=== PATIENT | female | born 1935 | race Hispanic/Latino ===

== ENCOUNTER 2017-12-08 12:21 | Inpatient (IN) | payer MEDICARE ==
--- NOTE | 2017-12-08 12:50 | ED PDOC ---
Arrival/HPI - General Chief Complaint: Dizziness/Lightheaded - History of Present Illness Narrative History of Present Illness (Text): 12/08/17 12:47 Pt is an 82 yo F with PMH of HTN presents to ED due to dizziness for the past couple of days. Pt states that everytime she looks down or bends over her heart starts to race and she gets dizzy. Pt also states that she will occasionally get dizziness while walking around or when standing to quickly. Pt states that her symptoms worsened over the last day and her BP was elevated, so she came to ED to be evaluated. Pt also complains of non-productive cough. Pt denied CP, palpitations, SOB, n/v/d, abdominal pain, fever, chills, STOVALL or dysuria. Pt denied any prior cardiac history. PMD: Jol[place] Past Medical History - Reproductive Menopause: Yes - Cardiac Hx Pacemaker: No - Neurological Hx Paralysis: No - Hematological/Oncological Hx Blood Transfusions: No Hx Blood Transfusion Reaction: No - Musculoskeletal/Rheumatological Hx Arthritis: Yes (hands) - Gastrointestinal Hx Diverticulitis: Yes - Psychiatric Hx Depression: No Hx Emotional Abuse: No Hx Physical Abuse: No Hx Substance Use: No - Surgical History Hx Orthopedic Surgery: Yes Other/Comment: Lt ankle - Anesthesia Hx Anesthesia Reactions: Yes ("TAKES LONGER TO WAKE UP". DR LEWIS MADE AWARE) Hx Malignant Hyperthermia: No - Suicidal Assessment Feels Threatened In Home Enviroment: No Family/Social History Family/Social History: No Known Family HX Smoking Status: Never Smoked Hx Alcohol Use: No Hx Substance Use: No Hx Substance Use Treatment: No Allergies/Home Meds Allergies/Adverse Reactions: Allergies No Known Allergies Allergy (Verified 12/13/12 11:37) Home Medications: Home Meds Medication Instructions Recorded Confirmed Lisinopril 0 mg PO 12/27/12 12/27/12 Review of Systems - Review of Systems Constitutional: Normal Eyes: Normal ENT: Normal Respiratory: Cough (dry). absent: SOB Cardiovascular: Other (tachycardia). absent: Chest Pain, Palpitations, Orthopnea Gastrointestinal: Normal Genitourinary Female: Normal Musculoskeletal: Normal Skin: Normal Neurological: Normal Endocrine: Normal Hemo/Lymphatic: Normal Psychiatric: Normal Physical Exam Vital Signs Temp Pulse Resp BP Pulse Ox 12/08/17 12:31 98.3 F 64 19 172/78 H 95 Temperature: Afebrile Blood Pressure: Normal Pulse: Regular Respiratory Rate: Normal Appearance: Positive for: Well-Appearing Pain Distress: None Mental Status: Positive for: Alert and Oriented X 3 - Systems Exam Head: Present: Atraumatic, Normocephalic Pupils: Present: PERRL Extroacular Muscles: Present: EOMI Conjunctiva: Present: Normal Ears: Present: Normal Mouth: Present: Dry Pharnyx: Present: Normal Respiratory/Chest: Present: Clear to Auscultation. No: Accessory Muscle Use, Wheezes, Rales, Rhonchi Cardiovascular: Present: Murmurs (systolic, greatest at right sternal border), Normal S1, S2, Irregular Rhythm Abdomen: No: Tenderness, Distention, Peritoneal Signs, Rebound, Guarding Upper Extremity: Present: Normal Inspection Lower Extremity: Present: Normal Inspection Neurological: Present: GCS=15 Skin: Present: Warm, Dry, Normal Color Psychiatric: Present: Alert, Oriented x 3, Anxious Medical Decision Making ED Course and Treatment: 12/08/17 13:13 Assessment: Pt is an 82 yo F with PMH of HTN presents to ED due to dizziness. Plan: - CBC - CMP - Mg - Coags - Cardiac enzymes - EKG - CXR - Urinalysis - TSH - Orthostatics - CT head 12/08/17 13:15 EKG showed atrial fibrillation with competing junctional pacemaker. Cardiac enzyme negative. 12/08/17 15:55 Chest X-ray showed no active pulmonary disease. CT head showed no acute intracranial abnormality. Mild chronic microangiopathic changes and mild age-related global parenchymal volume loss. Fluid level in the right maxillary sinus with aerosolized secretions may represent acute sinusitis in the appropriate clinical setting. 12/08/17 16:[address] Abel, he accepts patient under his service. Requests cardiology consult with Dr. Mccauley. - Lab Interpretations Lab Results: 12/08/17 13:00 12/08/17 13:00 Lab Results 12/08/17 13:00: TSH 3rd Generation 2.80 12/08/17 13:00: Sodium 142, Potassium 3.8, Chloride 106, Carbon Dioxide 25, Anion Gap 15, BUN 23 H, Creatinine 0.7, Est GFR ( Amer) > 60, Est GFR ( Non-Af Amer) > 60, Random Glucose 106, Calcium 9.8, Magnesium 2.1, Total Bilirubin 0.4, AST 25, ALT 28, Alkaline Phosphatase 78, Lactate Dehydrogenase 503, Total Creatine Kinase 55, Troponin I < 0.01, NT-Pro-B Natriuret Pep 550 H, Total Protein 7.4, Albumin 3.9, Globulin 3.6, Albumin/Globulin Ratio 1.1 12/08/17 13:00: PT 12.0, INR 1.04, APTT 32.8 12/08/17 13:00: WBC 6.5, RBC 3.87, Hgb 11.3 L, Hct 33.7 L, MCV 87.1, MCH 29.2, MCHC 33.5, RDW 14.3, Plt Count 257, MPV 8.6, Gran % 62.9, Lymph % (Auto) 28.8, [place] % (Auto) 6.0, Eos % (Auto) 1.7, Baso % (Auto) 0.6, Gran # 4.09, Lymph # ( Auto) 1.9, [place] # (Auto) 0.4, Eos # (Auto) 0.1, Baso # (Auto) 0.04 - RAD Interpretation Radiology Orders: 12/08/17 12:53 CHEST PORTABLE [RAD] Stat 12/08/17 12:59 HEAD W/O CONTRAST [CT] Stat - Medication Orders Current Medication Orders: Discontinued Medications Aspirin (Aspirin) 325 mg PO STAT STA Stop: 12/08/17 12:53 Last Admin: 12/08/17 13:19 Dose: 325 mg Disposition/Present on Arrival - Present on Arrival Any Indicators Present on Arrival: No History of DVT/PE: No History of Uncontrolled Diabetes: No Urinary Catheter: No History of Decub. Ulcer: No History Surgical Site Infection Following: None - Disposition Have Diagnosis and Disposition been Completed?: Yes Diagnosis: Atrial fibrillation Disposition: HOSPITALIZED Disposition Time: 16:55 Patient Plan: Admission Condition: STABLE
[2017-12-08 13:14] LABS: BASO # 0.04 K/mm3 (0.0-2.0); BASO % 0.6 % (0.0-3.0); EOS # 0.1 (0.0-0.7); EOS % 1.7 % (1.5-5.0); GRAN # 4.09 (1.4-6.5); GRAN % 62.9 % (50.0-68.0); HEMOGLOBIN 11.3 g/dL (12.0-16.0); LYMPH # 1.9 (1.2-3.4); LYMPH % 28.8 % (22.0-35.0); MEAN CELL VOLUME 87.1 fl (80.0-105.0); MEAN CORPUSCULAR HEMOGLOBIN 29.2 pg (25.0-35.0); MEAN CORPUSCULAR HGB CONC 33.5 g/dl (31.0-37.0); MEAN PLATELET VOLUME 8.6 fl (7.0-11.0); MONO # 0.4 (0.1-0.6); RBC 3.87 10^6/uL (3.5-6.1); RED CELL DISTRIBUTION WIDTH 14.3 % (11.5-14.5); WHITE BLOOD COUNT 6.5 10^3/ul (4.5-11.0)
[2017-12-08 13:27] LABS: INR 1.04 (0.93-1.08); PARTIAL THROMBOPLASTIN TIME 32.8 Seconds (25.1-36.5)
[2017-12-08 13:33] LABS: ALB/GLOB RATIO 1.1 (1.1-1.8); ALBUMIN 3.9 g/dL (3.0-4.8); ALT/SGPT 28 U/L (7-56); AST/SGOT 25 U/L (14-36); BLOOD UREA NITROGEN 23 mg/dL (7-21); CALCIUM 9.8 mg/dL (8.4-10.5); GFR AFRICAN-AMERICAN > 60; GFR NON-AFRICAN AMERICAN > 60; MAGNESIUM 2.1 mg/dL (1.7-2.2)
--- NOTE | 2017-12-08 13:43 | RAD ---
HISTORY: Cough COMPARISON: 12/27/2012 FINDINGS: LUNGS: The lungs are well inflated. There is mild pulmonary venous congestion. PLEURA: No significant pleural effusion identified, no pneumothorax apparent. CARDIOVASCULAR: The heart is normal in size. Atherosclerotic aortic arch calcifications are present. OSSEOUS STRUCTURES: No significant abnormalities. VISUALIZED UPPER ABDOMEN: Normal. OTHER FINDINGS: None. IMPRESSION: No active pulmonary disease.
[2017-12-08 13:47] LABS: B-TYPE NATRIURETIC PEPTIDE 550 pg/mL (0-450); TROPONIN I < 0.01 ng/mL
--- NOTE | 2017-12-08 14:30 | CT ---
PROCEDURE: CT HEAD WITHOUT CONTRAST. HISTORY: Dizziness COMPARISON: None available. TECHNIQUE: Axial computed tomography images were obtained through the head/brain without intravenous contrast. Radiation dose: Total exam DLP = 844.53 mGy-cm. This CT exam was performed using one or more of the following dose reduction techniques: Automated exposure control, adjustment of the mA and/or kV according to patient size, and/or use of iterative reconstruction technique. FINDINGS: HEMORRHAGE: No intracranial hemorrhage. BRAIN: There are mild chronic microangiopathic changes. There is no mass, mass effect or abnormal extra-axial fluid collection. VENTRICLES: There is mild age-related global parenchymal volume loss and proportionate enlargement of the ventricles and cortical sulci. CALVARIUM: The skull base and calvarium are normal. PARANASAL SINUSES: There is fluid and aerosolized secretions in the right maxillary. The remaining included paranasal sinuses are predominantly clear. MASTOID AIR CELLS: Predominantly clear. OTHER FINDINGS: None. IMPRESSION: No acute intracranial abnormality. Mild chronic microangiopathic changes and mild age-related global parenchymal volume loss. Fluid level in the right maxillary sinus with aerosolized secretions may represent acute sinusitis in the appropriate clinical setting.
[2017-12-08] MEDS: Enoxaparin 60 mg Syringe SC SCH ×2 (21:18→21:26)
[2017-12-08 23:57] VITALS: BMI 21.1
[2017-12-08] MEDS ORDERED: Pneumococcal 23-Valent Vaccine IM ONE (23:57)
[2017-12-08] MEDS ORDERED: Influenza Vaccine 60 mcg/0.5 mL SYR (4YR UP) IM ONE (23:57)
[2017-12-09 05:32] VITALS: RESP 18; O2SAT 94
[2017-12-09 07:57] LABS: URINE BILIRUBIN NEGATIVE (NEGATIVE); URINE BLOOD TRACE-INTACT (NEGATIVE); URINE GLUCOSE (UA) NEGATIVE (NEGATIVE); URINE LEUKOCYTE ESTERASE NEGATIVE Leu/uL (NEGATIVE); URINE NITRATE NEGATIVE (NEGATIVE); URINE PROTEIN NEGATIVE mg/dL (<30 mg/dL); URINE UROBILINOGEN 0.2 E.U./dL (<1 E.U./dL)
[2017-12-09 07:58] LABS: URINE APPEARANCE CLEAR (CLEAR); URINE COLOR YELLOW (YELLOW)
[2017-12-09 08:07] LABS: URINE BACTERIA MANY (NEG); URINE EPITHELIAL CELLS 0 - 2 /hpf (0-5); URINE WBC 0 - 2 /hpf (0-6)
[2017-12-09 08:08] LABS: URINE AMORPHOUS SEDIMENT FEW
[2017-12-09] MEDS: Enoxaparin 60 mg Syringe SC SCH (08:08)
--- NOTE | 2017-12-09 09:54 | CARD ---
APPROVED REPORT EKG Measurement Heart [id number] <Conclusion> RSR with frequent APCs in a bigeminal pattern, new PRWP
[2017-12-09 12:16] VITALS: BP 182/78; TEMP 97.6
[2017-12-09 15:22] VITALS: PULSE 81
--- NOTE | 2017-12-10 01:06 | CON ---
DATE: 12/09/2017 LOCATION: The patient is in room 262, bed 1. REASON FOR CONSULTATION: Dizziness, hypertension, cardiac arrhythmia, and PAC's. HISTORY OF PRESENT ILLNESS: The patient is an 82-year-old female, known hypertension, admitted with the history that she had pressure-like discomfort in the head for long time and on the day of admission, when she bent down, she felt very dizzy. Denies any history of exertional chest pain, shortness of breath or palpitations. The patient was taking losartan 50 mg with hydrochlorothiazide 12.5 mg for blood pressure. PAST MEDICAL HISTORY: Positive for ankle surgery, colitis, diverticulitis, and cataract surgery. PERSONAL HISTORY: Denies smoking. Drinks socially. HOME MEDICATIONS: The patient takes combination of losartan 50 mg and hydrochlorothiazide 12.5 mg one tablet daily. ALLERGIES: DENIES ANY ALLERGIES. PHYSICAL EXAMINATION: VITAL SIGNS: Blood pressure on admission 172/78, then went down to 130/80. The patient's blood pressure at 4 a.m. today was 133/76, then it went up to 179/80 and she was given Norvasc 10 mg daily and then went down to 153/78. Respirations 18, pulse 68 and temperature 97.6. HEENT: Head is normocephalic. Eyes, pupils normal. Conjunctivae normal. Nose and throat normal. NECK: JVP low. Carotid equal. THORAX: AP diameter normal. LUNGS: Clear. CARDIOVASCULAR: S1 and S2. Ejection systolic murmur grade 3/6. No rub. ABDOMEN: Soft. Nontender. No organomegaly. Bowel sound normal. EXTREMITIES: No clubbing, no cyanosis. LABORATORY DATA: WBC 6.5, hemoglobin 11.3, hematocrit 33.7, and platelet 257. Sodium 142, potassium 3.8, BUN 23, and creatinine 0.7. Troponin x2 is negative. NT-proB natriuretic peptide 550, not significant TSH 2.80. Magnesium, calcium, phosphorus, AST, and ALT normal. Random glucose 106. EKG showed sinus rhythm, non-conducted PAC's, episode of bradycardia. Chest x-ray, no significant abnormality. CAT scan of the head, no acute abnormality, mild chronic microangiopathic changes and mild age related global parenchymal volume loss, fluid in the right maxillary sinus with aerosolized secretions, may represent acute sinusitis. DIAGNOSES: Dizziness, uncontrolled hypertension, cardiac arrhythmia, premature atrial contractions, calcific aortic valve, episodes of bradycardia with non-conducted premature atrial contractions. PLAN: The patient is on losartan 50 daily, hydrochlorothiazide 12.5 mg daily. We will add amlodipine 10 mg daily. We will also add aspirin 81 mg daily. The patient will need Holter and echo and IV Lexiscan stress test, but she wants to do it later. In the meantime, we will continue to monitor the patient and monitor blood pressure, adjust the medication. Sushant Siddiqui MD
--- NOTE | 2017-12-10 02:20 | HP ---
HISTORY OF PRESENT ILLNESS: The patient is 82 years old, who came to emergency room because of palpitation. The patient states she was having headache. She was feeling a little lightheaded and feeling dizzy. It has been going on for a few days, but last night it got worse. The patient states when she was moving her head or bending down, she would feel dizzy and start having palpitation. She also states that her condition got worse in the last 24 hours and she also noted that her blood pressure was running high and her heart was racing, so she came to emergency to be evaluated further. Denies any fever or chills. No nausea or vomiting. No diarrhea. No fever or chills. PAST MEDICAL HISTORY: Significant for hypertension and hyperlipidemia. ALLERGIES: SHE IS NOT ALLERGIC TO ANY MEDICATION. PAST SURGICAL HISTORY: Significant for fall and having right foot fracture a couple of years ago and had open reduction and internal fixation done. She also has a history of cataract extraction. MEDICATION AT HOME: She is on losartan 50/12.5 daily and aspirin 81 daily. FAMILY HISTORY: Significant for dad having heart attack at the age of 50. SOCIAL HISTORY: She lives alone. Denies any smoking, drinking or alcohol use. PHYSICAL EXAMINATION: GENERAL: On examination, she is awake, alert, oriented, communicative. VITAL SIGNS: She is afebrile, pulse 60, respiration 18, blood pressure 153/70. LUNGS: Bilateral good airflow. No rhonchi or crackle. HEART: S1, S2 audible. ABDOMEN: Soft. Nontender. No rebound. No guarding. NEUROLOGIC: She is awake and alert. Able to communicate. Tongue is midline. No deviation of uvula. Bilateral motor and sensory is intact. EXTREMITIES: Bilateral leg, no edema. No cyanosis or clubbing. LABORATORY EXAM: WBC 6.5, hemoglobin 11.3, hematocrit 33.7, platelet 257. PT 12.0, INR 1.04. Chemistry: Sodium 142, potassium 3.8, chloride 106, CO2 of 25, BUN 23, creatinine 0.7, blood sugar of 106. LFTs are within normal limit. BNP 550. Urinalysis is unremarkable. ASSESSMENT AND PLAN: 1. Uncontrolled hypertension. 2. Headache secondary to uncontrolled hypertension. 3. Palpitation. 4. Hyperlipidemia. The patient was advised to stay in the hospital for next 24 hours to control her pressure better. When the patient was upset, initial impression in the emergency room was atrial fibrillation, but she was told that she is not in atrial fibrillation, she got upset for that. She wants to go home today and she said she will follow with Dr. Siddiqui as outpatient and she is given prescription of Norvasc 5 mg daily. She will continue on losartan and she will continue on aspirin. She will follow with Dr. Siddiqui as outpatient and have echocardiogram and stress test done as outpatient. Gigi Arnett MD
== END 2017-12-09 17:09 | disposition home or self-care (01) | DRG 305 ==
LOC: ED 12:21 → ERH 16:14 → 2RNO 19:12
PROVIDERS: ADMIT Internal Medicine Nephrology; ATTEND Internal Medicine Nephrology
DX: I10 Essential (primary) hypertension (principal); E78.5 Hyperlipidemia, unspecified; R00.2 Palpitations; I49.1 Atrial premature depolarization